=== PATIENT | male | born 1960 | race Hispanic/Latino ===

== ENCOUNTER 2017-12-19 08:06 | Emergency (ER) | payer OTHER ==
[2017-12-19 08:07] VITALS: BMI 28.1
[2017-12-19] MEDS ORDERED: Albuterol-Ipratrop 3 mg / 0.5 (3 ml) UD INH STA (08:21)
--- NOTE | 2017-12-19 08:29 | C.PDOC ---
History Of Present Illness 57 year old male presents to the ED complaining of "bronchitis" for 5 days. Patient feels "chest filled with mucus" with associated fever and cough. He denies any sick contacts at home. He has tried cough medicine, vaporub, and cold compress but symptoms persist. Time Seen by Provider: 12/19/17 08:14 Chief Complaint (Nursing): Cough, Cold, Congestion History Per: Patient History/Exam Limitations: no limitations Onset/Duration Of Symptoms: Days Current Symptoms Are (Timing): Still Present Location Of Pain: None Sick Contacts (Context): None Associated Symptoms: Fever, Cough Ear Symptoms: Bilateral: None Past Medical History Reviewed: Historical Data, Nursing Documentation, Vital Signs Vital Signs: Last Vital Signs Temp 99.2 F 12/19/17 09:14 Pulse 78 12/19/17 09:14 Resp 22 12/19/17 09:14 BP 138/80 12/19/17 09:14 Pulse Ox 94 L 12/19/17 09:14 - Medical History PMH: Chronic Pain (Back) Other Surgeries: Hx of surgeries - [facility] Procedures ENDOSC POLYPECTOMY OF LG INTEST (09/28/13) TETANUS TOXOID ADMINIST (08/29/13) Family History: States: No Known Family Hx - Social History Hx Tobacco Use: Yes (1 ppd) Hx Alcohol Use: No Hx Substance Use: No (Former) - Immunization History Hx Tetanus Toxoid Vaccination: Yes (08/29/13) Hx Influenza Vaccination: Yes (01/2015) Hx Pneumococcal Vaccination: No (01/2015) Review Of Systems Constitutional: Positive for: Fever Respiratory: Positive for: Cough. Negative for: Shortness of Breath Gastrointestinal: Negative for: Nausea, Vomiting, Diarrhea Physical Exam - Physical Exam Appears: Non-toxic, No Acute Distress Skin: Warm, Dry Head: Atraumatic, Normacephalic Eye(s): bilateral: Normal Inspection, PERRL, EOMI Ear(s): Bilateral: Normal Nose: Normal Oral Mucosa: Moist Throat: Normal, No Erythema, No Exudate, No Drooling Neck: Supple Chest: Symmetrical Cardiovascular: Rhythm Regular, No Murmur Respiratory: No Rales, No Rhonchi, Wheezing (Expiratory wheezing ), Other ( Actively coughing ) Extremity: Normal ROM Extremity: Bilateral: Atraumatic, Normal Color And Temperature, Normal ROM Neurological/Psych: Oriented x3, Normal Speech Gait: Steady ED Course And Treatment O2 Sat by Pulse Oximetry: 93 (RA) Medical Decision Making Medical Decision Making: Impression: cough Plan - Neb treatment - Zithromax Re-Eval: Patient remained afebrile alert and oriented with stable vital signs during ER evaluation. On re-examination, patient is resting comfortably in no acute distress. Patient reports improvement of symptoms. Lung sounds have improve and O2 saturation is adequate. 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 Patient feels comfortable going home and will be discharged. Patient given follow up instructions. Instructed to return to ER if symptoms worsen or new symptoms arise. Disposition Counseled Patient/Family Regarding: Diagnosis, Need For Followup, Rx Given, Smoking Cessation - Disposition Referrals: [facility] [Outside] [facility]Outside] [facility] Disposition: HOME/ ROUTINE Disposition Time: 09:00 Condition: IMPROVED Additional Instructions: Follow up with your primary medical doctor or clinic in 2-5 days for further evaluation. Take medications as prescribed. Return to the emergency department at any time if symptoms persist or worsen. Prescriptions: Albuterol HFA [Ventolin HFA 90 mcg/actuation (8 g)] 1 puff IH Q4 #1 puff Azithromycin [Zithromax] 250 mg PO DAILY #4 tab Benzonatate [Tessalon Perles] 100 mg PO TID #30 sgl Instructions: Acute Bronchitis, Adult (DC) Forms: [facility] (Bengali) - POA Present On Arrival: None - Clinical Impression Clinical Impression: Bronchitis - PA / PASTRY ARTIST / Resident Statement MD/DO has reviewed & agrees with the documentation as recorded. - Scribe Statement The provider has reviewed the documentation as recorded by the Scribe Valerie Pena All medical record entries made by the Jyotiibzach were at my direction and personally dictated by me. I have reviewed the chart and agree that the record accurately reflects my personal performance of the history, physical exam, medical decision making, and the department course for this patient. I have also personally directed, reviewed, and agree with the discharge instructions and disposition.
[2017-12-19] MEDS ORDERED: Albuterol-Ipratrop 3 mg / 0.5 (3 ml) UD ONE (08:49)
[2017-12-19 09:15] VITALS: BP 138/80; PULSE 78; RESP 22; TEMP 99.2
[2017-12-19 10:57] VITALS: O2SAT 93
== END 2017-12-19 09:15 | disposition home or self-care (01) ==
LOC: C.ER 08:06
DX: J40 Bronchitis, not specified as acute or chronic (principal); Z87.891 Personal history of nicotine dependence

== ENCOUNTER 2018-04-14 16:48 | Emergency (ER) | payer OTHER ==
[2018-04-14 16:48] VITALS: BMI 28.1
[2018-04-14 18:24] VITALS: TEMP 97.9
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
[2018-04-14 19:00] LABS: BASO # 0.1 K/uL (0.0-0.2); BASO % 0.7 % (0.0-2.0); EOS # 0.3 K/uL (0.0-0.7); EOS % 3.8 % (0.0-4.0); HEMOGLOBIN 14.7 g/dL (12.0-18.0); LYMPH # 2.5 K/uL (1.0-4.3); LYMPH % 28.7 % (20.0-40.0); MEAN CORPUSCULAR HEMOGLOBIN 32.6 pg (27.0-31.0); MEAN CORPUSCULAR HGB CONC 33.6 g/dL (33.0-37.0); MEAN PLATELET VOLUME 7.6 fL (7.2-11.7); MONO # 0.7 K/uL (0.0-0.8); MONO % 7.6 % (0.0-10.0); NEUT # 5.3 K/uL (1.8-7.0); NEUT % 59.2 % (50.0-75.0); NRBC % 0.2 % (0.0-2.0); RBC 4.5 Mil/uL (4.40-5.90); RED CELL DISTRIBUTION WIDTH 13.3 % (11.5-14.5); WHITE BLOOD COUNT 8.9 K/uL (4.8-10.8)
[2018-04-14 19:10] LABS: BLOOD UREA NITROGEN 16 mg/dL (9-20); CALCIUM 9.3 mg/dl (8.6-10.4); GFR NON-AFRICAN AMERICAN > 60
[2018-04-14 19:37] VITALS: BP 133/86; PULSE 66; RESP 18; O2SAT 97
--- NOTE | 2018-04-16 17:43 | CARD ---
APPROVED REPORT Date of service: 04/14/2018 EKG Measurement Heart [id number] OR [id number] <Conclusion> Normal sinus rhythm Normal ECG
== END 2018-04-14 19:37 | disposition home or self-care (01) ==
LOC: C.ER 16:48
DX: R42 Dizziness and giddiness (principal)